=== PATIENT | female | born 1960 | race Caucasian/White ===

== ENCOUNTER 2021-09-27 16:56 | Day surgery (SDC) | payer OTHER, SELFPAY ==
[2021-09-27] VITALS (9 sets, daily range): BP systolic 128–170; BP diastolic 64–121; PULSE 79–103; RESP 16–25; TEMP 36.3–37.3; O2SAT 92–98
--- NOTE | 2021-09-27 17:22 | PM.IMHP ---
H&P: HPI History of Present Illness Date/Time: 09/27/21 17:22 Chief Complaint: Epistaxis left-sided posterior Narrative: Patient presents emergently to the ER bleeding through rhino rocket posterior bleed diagnosed in clinic this afternoon. Review of Systems Review of Systems: All systems reviewed & are unremarkable except as noted in HPI and below PMFSH Social History Social History (Reviewed 09/27/21 @ 10:55 by Nusrat Saini [facility]) Smoking status: Never smoker Alcohol intake: never Spiritual care concerns: No Meds Home Medications and Allergies Home Medications Medication Instructions Recorded Confirmed Type losartan 50 mg tablet 50 mg PO BID 09/26/21 09/27/21 History mupirocin 2 % topical ointment 1 applic topical QID #22 grams 09/26/21 09/27/21 Rx acetaminophen 500 mg tablet 1,000 mg PO Q6H PRN Pain 09/27/21 09/27/21 History Allergies Allergy/AdvReac Type Severity Reaction Status Date / Time No Known Allergies Allergy Verified 09/27/21 17:19 Vital Signs Vital Signs - 24 hr 09/27/21 17:14 Temperature 37.3 C Pulse Rate 79 Respiratory Rate 16 Blood Pressure 151/121 H Pulse Oximetry 97 Exam Narrative: Normal ENT exam rhino rocket left nasal passage Assessment and Plan Assessment and plan (1) Left-sided epistaxis: Code(s): R04.0 - Epistaxis Status: Acute Assessment and Plan: Plan is for the OR nasal endoscopy left-sided sphenopalatine artery ligation control of epistaxis left-sided maxillary antrostomy endoscopic will need 0 degree endoscope sinus straight suction Bovie micro debrider as well. Risks were discussed including bleeding infection CSF leak brain damage blindness change in vision failure to resolve symptoms. Will also need CBC drawn prior to OR.
--- NOTE | 2021-09-27 17:25 | WPDHPUPDATE1 ---
History and Physical Update Update Date/Time: 09/27/21 17:25 History and Physical has been reviewed, including an updated exam of the patient. There are NO changes in the patient's condition. Risks, benefits, and alternatives have been discussed and questions answered. Patient agrees to proceed with procedure.
--- NOTE | 2021-09-27 17:28 | ED.EPISTAXIS ---
HPI - Epistaxis General Chief complaint: Epistaxis Stated complaint: nose bleed, Dr. Johnson sent Time Seen by Provider: 09/27/21 17:28 History of Present Illness HPI Narrative: dr johnson came in with pt b/c left nares bleeding since saturday and bp up not sure if caused it or rxn to all the bleeding, saw in office rhinorocket and still bleeding around it supposed to have bp med now but ddine't take due to coming here for cautery surgery so will address iv and also checking cbc b/c bleeding so many days no cp/sob or narayanan or other c/o neuro chagnes/ etc Related Data Home Medications Medication Instructions Recorded Confirmed losartan 50 mg tablet 50 mg PO BID 09/26/21 09/27/21 acetaminophen 500 mg tablet 1,000 mg PO Q6H PRN Pain 09/27/21 09/27/21 Allergies Allergy/AdvReac Type Severity Reaction Status Date / Time No Known Allergies Allergy Verified 09/27/21 17:19 Review of Systems Constitutional: Comments: CONSTITUTIONAL: Denies fever, chills, or sweats. EYES: Denies visual changes, redness, or discharge. ENT: Denies rhinorrhea, congestion, sore throat, or otalgia. left nose bleed CARDIOVASCULAR: Denies chest pain, palpitations, or edema. RESPIRATORY: Denies cough or dyspnea. GASTROINTESTINAL: Denies abdominal pain, nausea, vomiting, or diarrhea. GENITOURINARY: Denies dysuria or hematuria. SKIN: Denies rash or itching. MUSCULOSKELETAL: Denies back pain, joint pain, or myalgia. NEUROLOGIC: Denies headache, numbness, or weakness. PSYCHIATRIC: Denies anxiety or depression. [facility] Social History Social History Smoking status: Never smoker Alcohol intake: never Spiritual care concerns: No Exam Const: Other: APPEARANCE: Well appearing, no pain in distress, well-nourished. Head normocephalic atraumtaic. EYES: PERRLA/EOMI, conjunctivae very clear. NOSE: Normal no drainage packe left nares no bleeding now EARS:TMS clear Jameel Dillon, with good light reflex. THROAT: Pharynx clear, no exudate. NECK: Supple. No adenopathy, no masses. RESPIRATORY: Airway patent, repsirations nonlabored. Clear to auscultation bilaterally, no rales, rhonchi, wheezing. CARDIOVASCULAR: Regular rate and rhythm without murmurs rubs or gallops. ABDOMINAL: Soft, nontender, nondistended, no hepatosplenomegally MUSCULOSKELETAl: Moves all extremities. Strenght/ROM intact, No edema, No calf tenderness. NEURO: Alert. Cranial nerves II through XII intact. Good gait. Good coordination SKIN:: Warm, dry. Normal Color PSYCHIATRIC: Normal affect/mood, normal interaction with parents. Course Vital Signs Vital signs: Vital Signs Temperature 37.3 C 09/27/21 17:14 Pulse Rate 79 09/27/21 17:14 Respiratory Rate 16 09/27/21 17:14 Blood Pressure 151/121 H 09/27/21 17:14 Pulse Oximetry 97 09/27/21 17:14 Temperature 37.3 C 09/27/21 17:14 Pulse Rate 79 09/27/21 17:14 Respiratory Rate 16 09/27/21 17:14 Blood Pressure 151/121 H 09/27/21 17:14 Pulse Oximetry 97 09/27/21 17:14 MDM - Epistaxis Lab Data Result diagrams: 09/27/21 17:21 Labs: Lab Results 09/27/21 Range/Units 17:21 WBC Pending RBC Pending Hgb Pending Hct Pending MCV Pending MCH Pending MCHC Pending RDW Pending Plt Count Pending MPV Pending Immature Gran % (Auto) Pending Neut % (Auto) Pending Lymph % (Auto) Pending [place] % (Auto) Pending Eos % (Auto) Pending Baso % (Auto) Pending Lymph # (Auto) Pending [place] # (Auto) Pending Eos # (Auto) Pending Baso # (Auto) Pending Abs Immat Gran (auto) Pending Absolute Neuts (auto) Pending Absolute Nucleated RBC Pending Nucleated RBC % Pending Discharge Plan Discharge Patient Disposition: Still a Patient Condition: Stable Prescriptions: No Action losartan 50 mg tablet 50 mg PO BID mupirocin 2 % ointment 1 applic topical QID Qty: 22 0RF
[2021-09-27 17:31] LABS: Basophils Absolute Auto 0.1 K/mm3 (0.0-0.1); Basophils Percent Auto 0.7 % (0.2-1.2); Eosinophils Absolute Auto 0.4 K/mm3 (0-0.3); Eosinophils Percent Auto 3.6 % (0-4.4); Hematocrit 36.3 % (37.0-47.0); Hemoglobin 11.5 g/dL (12.0-15.0); Immature Granulocyte Absolute 0.12 K/mm3 (0.00-0.031); Lymphocytes Absolute Auto 1.98 K/mm3 (0.9-3.2); Lymphocytes Percent Auto 16.4 % (18.3-44.2); Mean Corpuscular HGB Conc 31.7 g/dl (32-36); Mean Corpuscular Hemoglobin 28.8 pg (26-34); Mean Corpuscular Volume 90.8 fl (80-100); Monocytes Absolute Auto 0.8 K/mm3 (0.1-0.6); Monocytes Percent Auto 6.4 % (2.6-8.5); Neutrophils Absolute Auto 8.7 K/mm3 (1.3-6.7); Neutrophils Percent Auto 71.9 % (45.5-73.1); Platelet Count Result 338 k/mm3 (150-375); White Blood Count 12.1 K/mm3 (4.5-10.0)
[2021-09-27] MEDS: hydrALAZINE HCL 20 MG/ML VIAL 10 MG IV PUSH (17:36)
[2021-09-27] MEDS: OXYMETAZOLINE HCL 0.05% NAS 15 ML BTL (*BKC) 1 SPRAY NASAL (18:05)
[2021-09-27 18:24] LABS: Basophils Absolute Auto 0.1 K/mm3 (0.0-0.1); Basophils Percent Auto 0.5 % (0.2-1.2); Eosinophils Absolute Auto 0.5 K/mm3 (0-0.3); Hematocrit 34.8 % (37.0-47.0); Hemoglobin 11.1 g/dL (12.0-15.0); Immature Granulocyte Absolute 0.11 K/mm3 (0.00-0.031); Immature Granulocyte Percent A 0.9 % (0-0.5); Lymphocytes Absolute Auto 2.36 K/mm3 (0.9-3.2); Lymphocytes Percent Auto 18.4 % (18.3-44.2); Mean Corpuscular HGB Conc 31.9 g/dl (32-36); Mean Corpuscular Hemoglobin 28.8 pg (26-34); Mean Corpuscular Volume 90.4 fl (80-100); Mean Platelet Volume 10.1 fl (7.4-10.4); Monocytes Absolute Auto 0.9 K/mm3 (0.1-0.6); Monocytes Percent Auto 6.9 % (2.6-8.5); Neutrophils Absolute Auto 8.9 K/mm3 (1.3-6.7); Neutrophils Percent Auto 69.3 % (45.5-73.1); Platelet Count Result 354 k/mm3 (150-375); Red Blood Count 3.85 M/mm3 (4.2-5.4); Red Cell Distribution Width 14.9 % (11.5-14.5); White Blood Count 12.8 K/mm3 (4.5-10.0)
[2021-09-27] MEDS: LACTATED RINGERS 1,000 ML 30 ML IV CONT (19:02)
--- NOTE | 2021-09-27 19:12 | W.PM.PROC2 ---
Procedure Note - Detailed Date of Procedure 09/27/21 Pre-op Diagnosis Left-sided epistaxis Post-op Diagnosis Same Procedure Performed Left-sided nasal endoscopy, left-sided middle turbinectomy, left-sided maxillary antrostomy, left-sided ligation is still palatine artery, left-sided nasal cautery Surgeon Sam Ovalle MD Anesthesia General Findings Significant bleeding from the left-sided sphenopalatine region, cauterized, ligated, vast improvement following procedure Description of Procedure Patient identified consent verified. Patient brought operating. Time-out performed. General anesthesia induced endotracheal tube secured taped left lower lip. Patient prepped and draped for for mentioned procedure. Second time-out performed. Rhino rocket removed. Bleeding was noted from the posterior aspect of the nasal vault. Cautery performed on the septum were oozing was present. Septum was cracked over to provide slight slightly more room. Middle turbinate was obstructing with significant bleeding from emanating posterior to it. Middle turbinectomy performed stump cauterized using Bovie suction electrocautery setting of 15. Maxillary antrostomy performed with backbiter double ball tip probe straight through cut ensured to connect the natural os. Bleeding again controlled with Bovie suction electrocautery. At this time the posterior aspect of the maxillary antrostomy was moved posteriorly until the Nela ethmoidalis was encountered the sphenopalatine artery was encountered posterior to this was cauterized with Bovie suction electrocautery care was taken to ensure that the sphenoid palatine not only these feel a past sphenopalatine artery was cauterized but also the posterior septal branch the sphenopalatine artery no pack was placed. This marked the end of procedure. I performed all dictated portions. Care the patient was given Anesthesiology. Total blood loss around 100 cc. Intraop hemoglobin was checked noted to be about 11 point. No immediate complications patient taken to PACU. Estimated Blood Loss -100.0 Drains No Packing Yes (Nova pack) Pathology None sent Complications No immediate complications Condition Stable Disposition PACU
[2021-09-27] MEDS: oxyCODONE HCL (*CRX) 5 MG TAB IR PO (20:55)
== END 2021-09-27 21:35 | disposition home or self-care (01) ==
LOC: ANHED 17:30 → ANHSURGERY 17:32
PROVIDERS: Emergency Provider Emergency Medicine; PCP Nurse Practitioner Adult Health; Visit Provider Otolaryngology
PROC: (CPT 30999; principal; 2021-09-27 17:30)
DX: R04.0 Epistaxis (principal)
CPT/HCPCS: 30999; 31256; 31241; 36415; 85025; A9270; J0330; J0360; J1100; J2250; J2405; J2704; J7120

== ENCOUNTER 2021-10-10 08:42 | Outpatient (CLI) | payer OTHER, SELFPAY ==
--- NOTE | 2021-10-13 12:50 | WPDHOLTEREM ---
Holter/Event Monitor Holter/Event Monitor Date of procedure: 10/13/21 Holter/Event Procedure: 48 Hr Holter Monitor Indications: Abnormalities of the heart Conclusion: 1. 48 hour holter monitor on 10/10/21. 2. Underlying rhythm is sinus rhythm with sinus arrhythmia. HR range 48-140 bpm; average HR 76 bpm. 3. No premature supraventricular complexes. No supraventricular tachycardia. 4. There are 1,065 premature ventricular complexes and 3 ventricular trigeminy. No ventricular tachycardia. 5. No significant pauses greater than 2 seconds. 6. No symptoms available for correlation.
== END 2021-10-10 08:43 | disposition home or self-care (01) ==
LOC: ANHCARD 08:49
PROVIDERS: PCP Nurse Practitioner Adult Health; Visit Provider Nurse Practitioner Adult Health
DX: R00.8 Other abnormalities of heart beat (principal)
CPT/HCPCS: 93225; 93226

== ENCOUNTER 2023-01-25 08:24 | Outpatient (CLI) | payer OTHER, SELFPAY ==
[2023-01-25 12:44] LABS: Basophils Absolute Auto 0.1 K/mm3 (0.0-0.1); Eosinophils Absolute Auto 0.5 K/mm3 (0-0.3); Eosinophils Percent Auto 5.4 % (0-4.4); Hematocrit 40.4 % (37.0-47.0); Hemoglobin 12.6 g/dL (12.0-15.0); Immature Granulocyte Absolute 0.07 K/mm3 (0.00-0.031); Immature Granulocyte Percent A 0.8 % (0-0.5); Lymphocytes Absolute Auto 1.39 K/mm3 (0.9-3.2); Lymphocytes Percent Auto 15.8 % (18.3-44.2); Mean Corpuscular HGB Conc 31.2 g/dl (32-36); Mean Corpuscular Hemoglobin 28.3 pg (26-34); Mean Corpuscular Volume 90.6 fl (80-100); Mean Platelet Volume 10.3 fl (7.4-10.4); Monocytes Absolute Auto 0.7 K/mm3 (0.1-0.6); Monocytes Percent Auto 8.4 % (2.6-8.5); Neutrophils Percent Auto 68.6 % (45.5-73.1); Platelet Count Result 305 k/mm3 (150-375); Red Blood Count 4.46 M/mm3 (4.2-5.4); Red Cell Distribution Width 14.5 % (11.5-14.5); White Blood Count 8.8 K/mm3 (4.5-10.0)
[2023-01-25 12:50] LABS: Alanine Aminotransferase 12 U/L (6-35); Albumin Level 3.9 g/dL (3.5-5.1); Alkaline Phosphatase 104 U/L (38-126); Anion Gap 8 mmol/L (8-16); Aspartate Amino Transferase 47 U/L (14-36); Blood Urea Nitrogen 19 mg/dL (7-17); Calcium 8.9 mg/dL (8.4-10.2); Carbon Dioxide 29 mmol/L (22-30); Chloride 102 mmol/L (98-107); Cholesterol 195 mg/dL (0-200); Estimated Glomerular Filt Rate > 60; Glucose 105 mg/dL (65-110); HDL Direct 64 mg/dL; Potassium 4.3 mmol/L (3.4-5.0); Sodium 139 mmol/L (137-145); Triglycerides 71 mg/dL (<150)
[2023-01-25 13:03] LABS: LDL Cholesterol Direct 85 mg/dL
[2023-01-25 13:17] LABS: Hemoglobin A1C 5.5 % (<5.7)
== END 2023-01-25 08:25 | disposition home or self-care (01) ==
LOC: ANHGOSHLAB 08:25
PROVIDERS: PCP Emergency Medicine; Visit Provider Emergency Medicine
DX: E66.01 Morbid (severe) obesity due to excess calories (principal); Z68.44 Body mass index [BMI] 60.0-69.9, adult
CPT/HCPCS: 36415; 80053; 80061; 83036; 84443; 85025

== ENCOUNTER 2023-12-18 11:06 | Outpatient (CLI) | payer OTHER, SELFPAY ==
--- NOTE | ~2023-12-18 | MM_ITS ---
EXAMINATION: MM screening danette BI w ny HISTORY: Screening mammogram TECHNIQUE: Craniocaudal and mediolateral oblique 3-D tomosynthesis images were obtained and synthetic 2-D images were generated. CAD analysis was submitted and interpreted. COMPARISON: No prior mammogram is available for comparison at this institution. BREAST PARENCHYMAL COMPOSITION:Not Dense. The breasts are almost entirely fatty FINDINGS: No suspicious mass, calcification, or architectural distortion are identified in either harjinder ast to suggest malignancy. There has been no suspicious interval change. IMPRESSION: No mammographic evidence of malignancy. Recommend routine screening mammography in one year. BI-RADS Category 1: Negative Reviewed, dictated and finalized at location .
== END 2023-12-18 11:07 | disposition home or self-care (01) ==
LOC: MICIMG 11:06
PROVIDERS: PCP Nurse Practitioner Adult Health; Visit Provider Nurse Practitioner Adult Health
DX: Z12.31 Encounter for screening mammogram for malignant neoplasm of breast (principal)
CPT/HCPCS: 77063; 77067

== ENCOUNTER 2023-12-19 08:23 | Outpatient (CLI) | payer OTHER, SELFPAY ==
[2023-12-19 18:34] LABS: Hematocrit 43.4 % (37.0-47.0); Mean Corpuscular HGB Conc 32.3 g/dl (32-36); Mean Corpuscular Hemoglobin 29.6 pg (26-34); Mean Corpuscular Volume 91.8 fl (80-100); Mean Platelet Volume 10.7 fl (7.4-10.4); Platelet Count Result 337 k/mm3 (150-375); Red Blood Count 4.73 M/mm3 (4.2-5.4); Red Cell Distribution Width 14.6 % (11.5-14.5); White Blood Count 8.1 K/mm3 (4.5-10.0)
[2023-12-19 18:59] LABS: Alanine Aminotransferase 22 U/L (6-35); Albumin Level 4.4 g/dL (3.5-5.1); Alkaline Phosphatase 106 U/L (38-126); Anion Gap 9 mmol/L (4-12); Aspartate Amino Transferase 111 U/L (14-36); Bilirubin,Total 1.2 mg/dL (0.2-1.3); Blood Urea Nitrogen 14 mg/dL (7-17); Calcium 9.6 mg/dL (8.4-10.2); Carbon Dioxide 36 mmol/L (22-30); Chloride 94 mmol/L (98-107); Cholesterol 191 mg/dL (0-200); Estimated Glomerular Filt Rate > 60; Glucose 114 mg/dL (65-110); HDL Direct 56 mg/dL; Potassium 3.5 mmol/L (3.4-5.0); Sodium 139 mmol/L (137-145); Triglycerides 109 mg/dL (<150)
[2023-12-19 19:28] LABS: LDL Cholesterol Direct 88 mg/dL
[2023-12-19 19:49] LABS: Vitamin B12 > 1000.0 pg/mL (239-931)
[2023-12-19 22:46] LABS: Hemoglobin A1C 5.4 % (<5.7)
== END 2023-12-19 08:24 | disposition home or self-care (01) ==
LOC: ANHBWCLAB 08:24
PROVIDERS: PCP Nurse Practitioner Adult Health; Visit Provider Nurse Practitioner Adult Health
DX: Z13.9 Encounter for screening, unspecified (principal); I10 Essential (primary) hypertension; E66.01 Morbid (severe) obesity due to excess calories; Z68.43 Body mass index [BMI] 50.0-59.9, adult
CPT/HCPCS: 36415; 80053; 80061; 82607; 83036; 84443; 85027

== ENCOUNTER 2024-10-14 08:26 | Outpatient (CLI) | payer OTHER, SELFPAY ==
--- OUTSIDE RECORDS SUMMARY | 2024-10-14 08:30 | XMS_ITS | Clinical Summary ---
Author Organization [facility] [address] [place] [id number] Care Team Providers Care Paper Bundler Name Role Phone Kajal Webb MD, Jordon Gonzalez Primary Care Provi jong Allergies No known active allergies Medications cephalexin (KEFLEX) 500 mg capsule TAKE 1 CAPSULE BY MOUTH THREE TIMES DAILY UNTIL ALL TAKEN 10/20/2022 Active losartan (COZAAR) 25 mg tablet Take 1 tablet (25 mg total) by mouth daily Active naproxen (NAPROSYN) 500 mg tabletIndicatio ns:Anti-inflamm atory Take 1 tablet (500 mg total) by mouth 2 (two) times a day with meals 60 tablet 2 12/12/2022 Active Active Problems No known active problems Medical History Medical History Date Comments Hypertension Social History Tobacco Use Types Packs/Day Years Used Date Smoking Tobacco: Never Smokeless Tobacco: Never Tobacco Cessation:Counseling Given: Not Answered Personal Safety Answer Date Recorded Getting School Help Needed Not on file 02/19 Comments Unknown Sex and Gender Information Value Date Recorded Sex Assigned at Not on file Legal Sex Female 8:03 PM [employer] Gender Identity Not on file Sexual Orientation Not on file Obstetrics History Last Filed Vital Signs Vital Sign Reading Time Taken Comments Blood Pressure - - Pulse - - Temperature - - Respiratory Rate - - Oxygen Saturation - - Inhaled Oxygen Concentration - - Weight 136.1 kg (300 lb) 01/23/2023 9:23 AM [employer] Height 152.4 cm (5') 01/23/2023 9:23 AM [employer] Body Mass Index 58.59 01/23/2023 9:23 AM [employer] Plan of Treatment Health Maintenance Due Date Last Done Comments Breast Cancer Screening-Mammogram 1960 Cervical Cancer Screening 1960 Colon Cancer Screening-Colonoscopy 1960 Depression Screening 1960 Hepatitis C Screening 1960 Hepatitis B Screening 11/01/1977 Regular Well Visit/Exam 18-64 11/01/1977 Zoster Vaccine (1 of 2) 11/01/2009 DTaP/Tdap/Td Vaccine (2 - Td or Tdap) 02/18/2019 02/18/2009 Influenza Vaccine (#1) 2024 Pneumococcal vaccine <65 Aged Out No longer eligible based on patient's age to complete this topic Insurance [employer] [place] [employer] Care Teams Paper Bundler Relationship Specialty [place] [id number] [facility] [address] [place] [address] PCP - General Orthopedic Surgery 12/06/22
[2024-10-14 09:35] LABS: Alanine Aminotransferase 15 U/L (6-35); Albumin Level 4.0 g/dL (3.5-5.1); Alkaline Phosphatase 97 U/L (38-126); Anion Gap 7 mmol/L (4-12); Aspartate Amino Transferase 27 U/L (14-36); Bilirubin,Total 1.0 mg/dL (0.2-1.3); Blood Urea Nitrogen 17 mg/dL (7-17); Calcium 9.2 mg/dL (8.4-10.2); Carbon Dioxide 28 mmol/L (22-30); Chloride 104 mmol/L (98-107); Estimated Glomerular Filt Rate > 60; Glucose 101 mg/dL (65-110); Potassium 4.6 mmol/L (3.4-5.0); Sodium 139 mmol/L (137-145); Total Protein 7.3 g/dL (6.3-8.2)
== END 2024-10-14 08:27 | disposition home or self-care (01) ==
PROVIDERS: PCP Nurse Practitioner Adult Health; Visit Provider Orthopaedic Surgery
DX: R74.8 Abnormal levels of other serum enzymes (principal)
CPT/HCPCS: 36415; 80053; 82248